=== PATIENT | female | born 1965 ===

== ENCOUNTER 2019-03-22 10:00 | Outpatient (CLI) | payer SELFPAY ==
[2019-03-22 10:58] LABS: Hematocrit 42.1 % (30.3-42.9); Hemoglobin 14.6 gm/dl (10.1-14.3); Mean Corpuscular HGB Conc 35 % (30-34); Mean Corpuscular Volume 94 fl (79-97); Red Blood Count 4.47 M/mm3 (3.65-5.03); Red Cell Distribution Width 13.6 % (13.2-15.2)
[2019-03-22 11:24] LABS: Alanine Aminotransferase 12 units/L (7-56); Albumin 4.6 g/dL (3.9-5); BUN/Creatinine Ratio 20; Blood Urea Nitrogen 12 mg/dL (7-17); Calcium 9.3 mg/dL (8.4-10.2); Chol/HDL Ratio 2.86 %; HDL Cholesterol 61 mg/dL (40-59); Hemolysis Index 37; LDL Cholesterol,Direct 115 mg/dL (50-130)
[2019-03-22 11:57] LABS: Platelet Count 241 K/mm3 (140-440)
[2019-03-25 19:14] LABS: Vitamin D, 25-OH, D2 <4 ng/mL
== END 2019-03-22 10:01 | disposition home or self-care (01) ==
LOC: LAB 10:00
PROVIDERS: ATTEND Internal Medicine
DX: Z13.220 Encounter for screening for lipoid disorders (principal); Z13.21 Encounter for screening for nutritional disorder; Z13.29 Encounter for screening for other suspected endocrine disorder
CPT/HCPCS: 36415; 80053; 80061; 82306; 82607; 83036; 84443; 85027